=== PATIENT | male | born 1970 | race Caucasian/White ===

== ENCOUNTER 2016-07-24 10:23 | Emergency (ER) | payer MEDICARE, OTHER ==
[~2016-07-24] VITALS: Ht 175.3 cm; Wt 87.0 kg
[2016-07-24 10:25] VITALS: BP 142/80; PULSE 82; RESP 15; TEMP 98.2; O2SAT 99
[2016-07-24] MEDS ORDERED: [UNRECOGNIZED DRUG - CODE] PO (11:06)
[2016-07-24] MEDS ORDERED: ZOCO40TA PO (11:06)
[2016-07-24] MEDS ORDERED: LEXA20TA PO (11:06)
[2016-07-24] MEDS ORDERED: PRIL20TA2 PO (11:06)
[2016-07-24] MEDS ORDERED: CLON1 PO (11:06)
[2016-07-24] MEDS ORDERED: METO50TA PO (11:06)
[2016-07-24] MEDS ORDERED: BUPR100CR PO (11:06)
[2016-07-24] MEDS ORDERED: ADDE20 PO (11:06)
[2016-07-24 11:48] LABS: AUTOMATED NEUTROPHIL # 5.6 TH/MM3 (1.8-7.7); BASOPHIL % 0.5 % (0.0-2.0); EOSINOPHIL # 0.1 TH/MM3 (0-0.4); EOSINOPHIL % 1.6 % (0.0-4.0); HEMATOCRIT 38.8 % (39.0-51.0); HEMO FLAGS DIFF FINAL; LYMPH % 20.7 % (9.0-44.0); LYMPHOCYTE # 1.7 TH/MM3 (1.0-4.8); MEAN CELL VOLUME 87.2 FL (80.0-100.0); MEAN CORPUSCULAR HEMOGLOBIN 30.5 PG (27.0-34.0); MONO % 8.1 % (0.0-8.0); NEUT % 69.1 % (16.0-70.0); PLATELET COUNT 295 TH/MM3 (150-450); RED BLOOD COUNT 4.44 MIL/MM3 (4.50-5.90); RED CELL DISTRIBUTION WIDTH 14.2 % (11.6-17.2); WHITE BLOOD COUNT 8.1 TH/MM3 (4.0-11.0)
[2016-07-24 11:56] LABS: AMPHETAMINE, URINE NEG (NEG); BARBITURATES, URINE NEG (NEG); COCAINE, URINE NEG (NEG)
[2016-07-24 12:08] LABS: ANION GAP 8 MEQ/L (5-15)
[2016-07-24 12:18] LABS: BLOOD UREA NITROGEN 11 MG/DL (7-18); CHLORIDE 102 MEQ/L (98-107); GLOMERULAR FILTRATION RATE 88 ML/MIN (>89); POTASSIUM 3.6 MEQ/L (3.5-5.1); SODIUM (NA) 137 MEQ/L (136-145)
[2016-07-24 12:19] LABS: ACETAMINOPHEN LESS THAN 2.0 MCG/ML (10.0-30.0)
[2016-07-24 13:46] VITALS: BP 132/87; PULSE 88; RESP 16; O2SAT 98
--- NOTE | 2016-07-24 15:04 | PD ---
HPI Chief Complaint: Suicide Ideation/Attempt Time Seen by Provider: 10:59 Travel History International Travel<30 days: No Contact w/Intl Traveler<30days: No Traveled to known affect area: No History of Present Illness HPI 45yo M with HTN and major depressive disorder here with suicidal ideation. States there is a lot of stress in his life and he thought about hurting himself. Thought about drowning himself but denies taking any medications. Denies any fever, chest pain, sob, n/v, abdominal pain, focal weakness or numbness. PFSH Past Medical History ADD: Yes ADHD: Yes Cardiovascular Problems: Yes (HTN) High Cholesterol: Yes Diminished Hearing: Yes GERD: Yes Hypertension: Yes Medical other: Yes Psychiatric: Yes (ptsd) Tetanus Vaccination: < 5 Years Past Surgical History Cholecystectomy: Yes Tonsillectomy: Yes Other Surgery: Yes (ear) Social History Alcohol Use: No Tobacco Use: Yes Substance Use: No Allergies-Medications (Allergen,Severity, Reaction): Coded Allergies: Seroquel (Verified Allergy, Severe, TACHYCARDIA, 07/24/16) Lamictal (Verified Allergy, Intermediate, RASH, 07/24/16) Reported Meds & Prescriptions Reported Meds & Active Scripts Active Reported Zocor (Simvastatin) 40 Mg Tab 40 Mg PO HS Prilosec (Omeprazole Magnesium) 20 Mg Tab 40 Mg PO BID Hematinic Plus Vitamins-Minerals (Multi-Vit w/Iron) 1 Tab 1 Tab PO DAILY Metoprolol Tartrate 50 Mg Tab 50 Mg PO BID Lexapro (Escitalopram Oxalate) 20 Mg Tab 20 Mg PO DAILY Klonopin (Clonazepam) 1 Mg Tab 1 Mg PO BID Wellbutrin SR 12 HR (Bupropion HCl) 100 Mg Tab 100 Mg PO Q12HR Adderall (Amphetamine-Dextroamphetamine) 20 Mg Tab 40 Mg PO BID Avoid late evening doses. Space doses at least 4 to 6 hours if more than once/day dosing. Review of Systems Except as stated in HPI: all other systems reviewed are Neg Physical Exam Narrative GENERAL: 45yo M not in distress. SKIN: Focused skin assessment warm/dry. HEAD: Atraumatic. Normocephalic. EYES: Pupils equal and round. No scleral icterus. No injection or drainage. ENT: No nasal bleeding or discharge. Mucous membranes pink and moist. NECK: Trachea midline. No JVD. CARDIOVASCULAR: Regular rate and rhythm. No murmur appreciated. RESPIRATORY: No accessory muscle use. Clear to auscultation. Breath sounds equal bilaterally. GASTROINTESTINAL: Abdomen soft, non-tender, nondistended. Hepatic and splenic margins not palpable. MUSCULOSKELETAL: No obvious deformities. No clubbing. No cyanosis. No edema. NEUROLOGICAL: Awake and alert. No obvious cranial nerve deficits. Motor grossly within normal limits. Normal speech. Data Data Last Documented VS Vital Signs Date Time Temp Pulse Resp B/P Pulse Ox O2 Delivery O2 Flow Rate FiO2 07/24/16 13:46 88 16 132/87 98 07/24/16 10:25 98.2 Orders Complete Blood Count With Diff (07/24/16 11:05) Basic Metabolic Panel (Bmp) (07/24/16 11:05) Psych Screen (07/24/16 11:05) Drug Screen, Random Urine (07/24/16 11:05) Alcohol (Ethanol) (07/24/16 11:05) Salicylates (Aspirin) (07/24/16 11:05) Tylenol (Acetaminophen) (07/24/16 11:05) Labs Laboratory Tests Test 07/24/16 07/24/16 11:00 11:25 White Blood Count 8.1 TH/MM3 Red Blood Count 4.44 MIL/MM3 Hemoglobin 13.6 GM/DL Hematocrit 38.8 % Mean Corpuscular Volume 87.2 FL Mean Corpuscular Hemoglobin 30.5 PG Mean Corpuscular Hemoglobin 35.0 % Concent Red Cell Distribution Width 14.2 % Platelet Count 295 TH/MM3 Mean Platelet Volume 9.3 FL Neutrophils (%) (Auto) 69.1 % Lymphocytes (%) (Auto) 20.7 % Monocytes (%) (Auto) 8.1 % Eosinophils (%) (Auto) 1.6 % Basophils (%) (Auto) 0.5 % Neutrophils # (Auto) 5.6 TH/MM3 Lymphocytes # (Auto) 1.7 TH/MM3 Monocytes # (Auto) 0.7 TH/MM3 Eosinophils # (Auto) 0.1 TH/MM3 Basophils # (Auto) 0.0 TH/MM3 CBC Comment DIFF FINAL Differential Comment Sodium Level 137 MEQ/L Potassium Level 3.6 MEQ/L Chloride Level 102 MEQ/L Carbon Dioxide Level 27.0 MEQ/L Anion Gap 8 MEQ/L Blood Urea Nitrogen 11 MG/DL Creatinine 0.92 MG/DL Estimat Glomerular Filtration 88 ML/MIN Rate Random Glucose 83 MG/DL Calcium Level 9.0 MG/DL Salicylates Level LESS THAN 1.7 MG/DL Acetaminophen Level LESS THAN 2.0 MCG/ML Ethyl Alcohol Level LESS THAN 3 MG/DL Urine Opiates Screen NEG Urine Barbiturates Screen NEG Urine Amphetamines Screen NEG Urine Benzodiazepines Screen NEG Urine Cocaine Screen NEG Urine Cannabinoids Screen NEG MDM Medical Decision Making Medical Screen Exam Complete: Yes Emergency Medical Condition: Yes Differential Diagnosis Depression vs. suicidal ideation vs. drug use Narrative Course 45yo M with depression here stating he has suicidal thoughts. Labs reviewed, no leukocytosis. BMP unremarkable. Alcohol negative. Salicylate and acetaminophen negative. Urine drug screen negative. Pt is medically clear for psych evaluation. Diagnosis Primary Impression: Depression Qualified Code: F33.9 - Episode of recurrent major depressive disorder, unspecified depression episode severity Jeanette Bonilla DO Jul 24, 2016 15:04
[2016-07-24 19:00] VITALS: BP 105/66; PULSE 67; RESP 18
[2016-07-24 22:00] VITALS: BP 105/54; PULSE 61; RESP 17; O2SAT 99
[2016-07-25 02:27] VITALS: BP 110/69; PULSE 64; RESP 17; O2SAT 98
[2016-07-25 06:00] VITALS: BP 116/58; PULSE 53; RESP 19; O2SAT 98
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
[2016-07-25 10:27] VITALS: BP 119/74; PULSE 73; RESP 18
[2016-07-25] MEDS ORDERED: BUPR100CR PO (10:55)
[2016-07-25] MEDS ORDERED: LEXA20TA PO (10:56)
== END 2016-07-25 11:36 | disposition home or self-care (01) ==
LOC: NEPC 10:23 → NEPJ 07-25 11:36
DX: F33.9 Major depressive disorder, recurrent, unspecified (principal); F90.9 Attention-deficit hyperactivity disorder, unspecified type; F43.10 Post-traumatic stress disorder, unspecified; I10 Essential (primary) hypertension; Z62.819 Personal history of unspecified abuse in childhood; Z72.0 Tobacco use; Z59.0 Homelessness; Z56.0 Unemployment, unspecified
CPT/HCPCS: 80048; 80307; 85025; 99284

== ENCOUNTER 2016-07-27 12:37 | Emergency (ER) | payer MEDICARE, OTHER ==
[2016-07-27] VITALS (9 sets, daily range): BP systolic 100–111; BP diastolic 58–75; PULSE 60–68; RESP 16–18; TEMP 97.8–98; O2SAT 98–99
[~2016-07-27] VITALS: Ht 175.3 cm; Wt 81.0 kg
[~2016-07-27 12:37] MED LIST: ADDE20 PO; BUPR100CR PO; CLON1 PO; LEXA20TA PO; METO50TA PO; PRIL20TA2 PO; ZOCO40TA PO; [UNRECOGNIZED DRUG - CODE] PO
[2016-07-27] MEDS ORDERED: SODIUM CHLORIDE 0.9% FLUSH 10 ML FLUSH IVF PRN (13:00)
[2016-07-27] MEDS ORDERED: SODIUM CHLOR 0.9% 1000 ML INJ 1,000 ML IV ONE (13:00)
--- NOTE | 2016-07-27 13:10 | PD ---
HPI Chief Complaint: Psychiatric Symptoms Time Seen by Provider: 12:58 Travel History International Travel<30 days: No Contact w/Intl Traveler<30days: No Traveled to known affect area: No History of Present Illness HPI 45 year old male with PMH of PTSD, depression HTN, HLD presents to the ED by EMS under [place] [facility] for evaluation of suicidal ideation. The patient states that he took ~30 metoprolol by mouth throughout the night. He also states that he crushed and snorted ~20 Klonopin. He states that he was attempting to end his life because "I have no one and nothing." He endorses previous suicide attempt and previous psychiatric hospitalization. On presentation he complains of hunger but denies other somatic complaints. He states that he was evaluated by the psychiatric screener yesterday and cleared. He states that he "did not like that person" so he denied suicidal ideation to be discharged. [facility] Past Medical History ADD: Yes ADHD: Yes Cardiovascular Problems: Yes (HTN) High Cholesterol: Yes Diminished Hearing: Yes GERD: Yes Hypertension: Yes Psychiatric: Yes (ptsd) Tetanus Vaccination: < 5 Years Influenza Vaccination: No Past Surgical History Cholecystectomy: Yes Tonsillectomy: Yes Other Surgery: Yes (ear) Social History Alcohol Use: No Tobacco Use: Yes Substance Use: No (DENIES) Allergies-Medications (Allergen,Severity, Reaction): Coded Allergies: Lamictal (Verified Allergy, Intermediate, RASH, 07/27/16) Seroquel (Verified Adverse Reaction, Severe, TACHYCARDIA, 07/27/16) Reported Meds & Prescriptions Reported Meds & Active Scripts Active Lexapro (Escitalopram Oxalate) 20 Mg Tab 20 Mg PO DAILY Reported Flonase Nasal [place] (Fluticasone Nasal [place]) 50 Mcg/Act [place] 2 Mcg EACH NARE DAILY Protonix (Pantoprazole Sodium) 40 Mg Tab 40 Mg PO DAILY Metoprolol Tartrate 25 Mg Tab 25 Mg PO BID Wellbutrin Xl 24 HR (Bupropion HCl) 300 Mg Tab 300 Mg PO DAILY Zocor (Simvastatin) 40 Mg Tab 40 Mg PO HS Klonopin (Clonazepam) 1 Mg Tab 1 Mg PO BID Review of Systems Except as stated in HPI: all other systems reviewed are Neg Physical Exam Narrative GENERAL: Well-nourished, well-developed hard of hearing white male in no acute distress. SKIN: Focused skin assessment warm/dry. HEAD: Normocephalic. Bilateral hearing aids EYES: No scleral icterus. No injection or drainage. NECK: Supple, trachea midline. No JVD or lymphadenopathy. CARDIOVASCULAR: Regular rate and rhythm without murmurs, gallops, or rubs. 2+ DP and radial pulses bilaterally. RESPIRATORY: Breath sounds clear and equal bilaterally. No accessory muscle use. GASTROINTESTINAL: Abdomen soft, non-tender, nondistended. Active bowel sounds. MUSCULOSKELETAL: No cyanosis, or edema. Patient moves extremities spontaneously. [facility] BACK: Nontender without obvious deformity. No CVA tenderness. Data Data Last Documented VS Vital Signs Date Time Temp Pulse Resp B/P Pulse Ox O2 Delivery O2 Flow Rate FiO2 07/27/16 15:10 97.8 62 17 105/62 99 Room Air Orders Complete Blood Count With Diff (07/27/16 12:48) Comprehensive Metabolic Panel (07/27/16 12:48) Urinalysis - C+S If Indicated (07/27/16 12:48) Electrocardiogram (07/27/16 12:48) Oximetry (07/27/16 12:48) Iv Access Insert/Monitor (07/27/16 12:48) Ecg Monitoring (07/27/16 12:48) Psych Screen (07/27/16 12:48) Sodium Chloride 0.9% Flush (Ns Flush) (07/27/16 13:00) Drug Screen, Random Urine (07/27/16 12:48) Alcohol (Ethanol) (07/27/16 12:48) Salicylates (Aspirin) (07/27/16 12:48) Tylenol (Acetaminophen) (07/27/16 12:48) Sodium Chlor 0.9% 1000 Ml Inj (Ns 1000 M (07/27/16 13:00) Labs Laboratory Tests Test 07/27/16 07/27/16 13:00 15:00 White Blood Count 8.9 TH/MM3 Red Blood Count 4.24 MIL/MM3 Hemoglobin 13.3 GM/DL Hematocrit 37.4 % Mean Corpuscular Volume 88.1 FL Mean Corpuscular Hemoglobin 31.5 PG Mean Corpuscular Hemoglobin 35.7 % Concent Red Cell Distribution Width 14.3 % Platelet Count 366 TH/MM3 Mean Platelet Volume 8.6 FL Neutrophils (%) (Auto) 63.1 % Lymphocytes (%) (Auto) 24.5 % Monocytes (%) (Auto) 9.1 % Eosinophils (%) (Auto) 2.9 % Basophils (%) (Auto) 0.4 % Neutrophils # (Auto) 5.6 TH/MM3 Lymphocytes # (Auto) 2.2 TH/MM3 Monocytes # (Auto) 0.8 TH/MM3 Eosinophils # (Auto) 0.3 TH/MM3 Basophils # (Auto) 0.0 TH/MM3 CBC Comment DIFF FINAL Differential Comment Sodium Level 138 MEQ/L Potassium Level 3.7 MEQ/L Chloride Level 104 MEQ/L Carbon Dioxide Level 27.3 MEQ/L Anion Gap 7 MEQ/L Blood Urea Nitrogen 9 MG/DL Creatinine 1.07 MG/DL Estimat Glomerular Filtration 74 ML/MIN Rate Random Glucose 99 MG/DL Calcium Level 9.0 MG/DL Total Bilirubin 1.2 MG/DL Aspartate Amino Transf 14 U/L (AST/SGOT) Alanine Aminotransferase 36 U/L (ALT/SGPT) Alkaline Phosphatase 64 U/L Total Protein 7.0 GM/DL Albumin 4.1 GM/DL Salicylates Level LESS THAN 1.7 MG/DL Acetaminophen Level LESS THAN 2.0 MCG/ML Ethyl Alcohol Level LESS THAN 3 MG/DL Urine Color YELLOW Urine Turbidity CLEAR Urine pH 6.0 Urine Specific [place] 1.010 Urine Protein NEG mg/dL Urine Glucose (UA) NEG mg/dL Urine Ketones NEG mg/dL Urine Occult Blood NEG Urine Nitrite NEG Urine Bilirubin NEG Urine Urobilinogen LESS THAN 2.0 MG/DL Urine Leukocyte Esterase NEG Urine RBC 1 /hpf Urine WBC LESS THAN 1 /hpf Urine Mucus FEW /lpf Microscopic Urinalysis Comment CULT NOT INDICATED Urine Opiates Screen NEG Urine Barbiturates Screen NEG Urine Amphetamines Screen NEG Urine Benzodiazepines Screen POS Urine Cocaine Screen NEG Urine Cannabinoids Screen NEG MDM Medical Decision Making Medical Screen Exam Complete: Yes Emergency Medical Condition: Yes Interpretation(s) EKG rate 55, sinus rhythm. NE interval 179, QRS 106, QTC 433. Normal axis. No ST elevations or depressions. Reviewed by Dr. Lea. Differential Diagnosis Adjustment disorder versus anxiety versus bipolar versus depression versus dementia versus electrolyte disorder versus malingering versus mood disorder versus ODD versus psychosis versus PTSD versus schizophrenia versus schizoaffective disorder versus substance-induced mood disorder versus other Narrative Course 45 year old male presents to the ED by EMS under [place] [facility] for evaluation of suicidal ideation. The patient states that he took ~30 metoprolol by mouth throughout the night. He also states that he crushed and snorted ~20 Klonopin. He states that he was attempting to end his life because "I have no one and nothing." He endorses previous suicide attempt and previous psychiatric hospitalization. On presentation he complains of hunger but denies other somatic complaints. He states that he was evaluated by the psychiatric screener yesterday and cleared. Vitals reviewed. Physical exam reveals a nontoxic- appearing, alert, oriented white male in no acute distress. Chest is clear to auscultation bilaterally. Abdomen soft, nontender. Patient moves extremities spontaneously. IV was established. The patient was placed on continuous monitoring. Poison control was contacted and suggest monitoring the patient and administering fluids. No concerning abnormalities of the CBC or CMP. Alcohol less than 3. Tox screen positive for benzos. UA unremarkable. The patient is medically clear for psychiatric evaluation. Please see psych notes for disposition. Diagnosis Primary Impression: Medical clearance for psychiatric admission Shama Bartlett Jul 27, 2016 13:09
[2016-07-27] MEDS ORDERED: WELLTAB39 PO (13:23)
[2016-07-27 13:24] LABS: AUTOMATED NEUTROPHIL # 5.6 TH/MM3 (1.8-7.7); BASOPHIL % 0.4 % (0.0-2.0); EOSINOPHIL # 0.3 TH/MM3 (0-0.4); EOSINOPHIL % 2.9 % (0.0-4.0); HEMATOCRIT 37.4 % (39.0-51.0); HEMO FLAGS DIFF FINAL; LYMPH % 24.5 % (9.0-44.0); LYMPHOCYTE # 2.2 TH/MM3 (1.0-4.8); MEAN CELL VOLUME 88.1 FL (80.0-100.0); MEAN CORPUSCULAR HEMOGLOBIN 31.5 PG (27.0-34.0); MEAN CORPUSCULAR HGB CONC 35.7 % (32.0-36.0); MONO % 9.1 % (0.0-8.0); NEUT % 63.1 % (16.0-70.0); PLATELET COUNT 366 TH/MM3 (150-450); RED BLOOD COUNT 4.24 MIL/MM3 (4.50-5.90); RED CELL DISTRIBUTION WIDTH 14.3 % (11.6-17.2); WHITE BLOOD COUNT 8.9 TH/MM3 (4.0-11.0)
[2016-07-27] MEDS ORDERED: PROT40TA PO (13:26)
[2016-07-27] MEDS ORDERED: METO25TA3 PO (13:26)
[2016-07-27] MEDS ORDERED: FLUT1SPR5 EACH NARE (13:28)
[2016-07-27 13:49] LABS: ACETAMINOPHEN LESS THAN 2.0 MCG/ML (10.0-30.0); ALT (GPT) 36 U/L (12-78); ANION GAP 7 MEQ/L (5-15); AST (GOT) 14 U/L (15-37); BICARBONATE 27.3 MEQ/L (21.0-32.0); BLOOD UREA NITROGEN 9 MG/DL (7-18); CHLORIDE 104 MEQ/L (98-107); GLOMERULAR FILTRATION RATE 74 ML/MIN (>89); POTASSIUM 3.7 MEQ/L (3.5-5.1); SODIUM (NA) 138 MEQ/L (136-145)
[2016-07-27 13:51] LABS: ALKALINE PHOSPHATASE 64 U/L (45-117); TOTAL BILIRUBIN ADULT 1.2 MG/DL (0.2-1.0)
[2016-07-27 15:15] LABS: BLOOD, URINE NEG (NEG); COMMENT (UR) CULT NOT INDICATED; CULTURE IF INDICATED CULT NOT INDICATED; GLUCOSE,URINE NEG (NEG); KETONE, URINE NEG (NEG); MUCUS URINE FEW /lpf (OCC); NITRITE,URINE NEG (NEG); URINE COLOR YELLOW (YELLW/STRAW)
[2016-07-27 15:18] LABS: AMPHETAMINE, URINE NEG (NEG); BARBITURATES, URINE NEG (NEG); COCAINE, URINE NEG (NEG)
[2016-07-28 01:53] VITALS: BP 110/73; PULSE 51; RESP 18
[2016-07-28 06:03] VITALS: BP 103/58; PULSE 58; RESP 18
[2016-07-28 11:28] VITALS: BP 111/68; PULSE 71; RESP 18; TEMP 98.6; O2SAT 95
[2016-07-28 11:29] VITALS: BP 111/68; PULSE 71; RESP 18; O2SAT 95
--- NOTE | 2016-07-28 14:17 | EKG ---
Date Performed: 07/27/2016 Time Performed: 13:05:52 PTAGE: 45 years EKG: SINUS BRADYCARDIA POSSIBLE LATERAL MYOCARDIAL INFARCTION ABNORMAL ECG NO PREVIOUS TRACING DOCTOR: Lance Baker Interpretating Date/Time 07/28/2016 14:17:03
--- NOTE | 2016-07-28 15:03 | PD ---
History of Present Illness Chief Complaint: Psychiatric Symptoms Time Seen by Provider: 14:45 Travel History International Travel<30 Days: No Contact w/Intl Traveler<30days: No Known affected area: No Legal Status Legal Status: Lawson Act Lawson Act Signed By: Joanne Rhodes History of Present Illness: 45-year-old male who presented under a Lawson act with reported history of suicidal threats. This physician extensively reviewed the patient's recent records as he will not speak to the staff, the [facility] or this physician. It was also noted he would not speak with law enforcement. Patient is hearing impaired but obviously does have the ability to speak. He was here several days ago with a history of snorting medication. He was reportedly suicidal then as well. He was also difficult to work with them. At this time, this physician does not feel it appropriate to admit the patient to the hospital or to continue his Lawson act. In fact, it is counter therapeutic to get into this patient's manipulations. As the patient has chosen not to speak with most of the staff members here, commenting that he does not like them, he is felt to most likely have a personality disorder. This is reinforced as well by his drug abuse. This physician understands that discharging him may be risky due to the patient's ability to act out. However, this physician finds no alternative that is therapeutic for the patient at this time. PFSH Past Medical History ADD: Yes ADHD: Yes Cardiovascular Problems: Yes (HTN) High Cholesterol: Yes Diminished Hearing: Yes GERD: Yes Hypertension: Yes Psychiatric: Yes (ptsd) Tetanus Vaccination: < 5 Years Influenza Vaccination: No Past Surgical History Cholecystectomy: Yes Tonsillectomy: Yes Other Surgery: Yes (ear) Psychiatric History Psychiatric History Hx Psychiatric Treatment: reports hx of PTSD and ADHD as well as depression. Multiple admissions in multiple staes reported. Does not report previous hx of suicide attempts. History of Inpatient Treatment: Yes Social History Hx Alcohol Use: No Hx Tobacco Use: Yes Hx Substance Use: No (DENIES) Hx of Substance Use Treatment: No Allergies-Medications (Allergen,Severity, Reaction): Coded Allergies: Lamictal (Verified Allergy, Intermediate, RASH, 4/23/17) Seroquel (Verified Adverse Reaction, Severe, TACHYCARDIA, 07/27/16) Reported Meds & Prescriptions Reported Meds & Active Scripts Active Lexapro (Escitalopram Oxalate) 20 Mg Tab 20 Mg PO DAILY Reported Flonase Nasal [place] (Fluticasone Nasal [place]) 50 Mcg/Act [place] 2 Mcg EACH NARE DAILY Protonix (Pantoprazole Sodium) 40 Mg Tab 40 Mg PO DAILY Metoprolol Tartrate 25 Mg Tab 25 Mg PO BID Wellbutrin Xl 24 HR (Bupropion HCl) 300 Mg Tab 300 Mg PO DAILY Zocor (Simvastatin) 40 Mg Tab 40 Mg PO HS Klonopin (Clonazepam) 1 Mg Tab 1 Mg PO BID Review of Systems ROS Limitations: Clinical Condition Except as stated in HPI: all other systems reviewed are Neg Exam Exam Limitations: Clinical Condition Alert: Yes [place]: Person, Place, Date, Situation Mood: Calm Affect: Appropriate Speech: Clear Eye Contact: Indirect Memory Intact: Immediate, Recent, Remote Insight/Judgement Adequate MDM Medical Decision Making Medical Record Reviewed: Yes Assessment/Plan Lawson act is being lifted and the patient is being discharged from the emergency department. Because the patient is being manipulative and will only speak to certain people and not to others, hiding his history from staff, this physician feels it is inappropriate to get into his manipulations. This is reinforced by the patient's ingestion of medicines by snorting. Although the patient remains at risk for acting out and harming himself, it remains counter therapeutic to admit him. Orders Diet Regular Basic (07/28/16 Breakfast) Diet Regular Basic (07/28/16 Lunch) Results Vital Signs Date Time Temp Pulse Resp B/P Pulse Ox O2 Delivery O2 Flow Rate FiO2 07/28/16 11:28 98.6 71 18 111/68 95 Room Air 07/28/16 06:03 58 18 103/58 07/28/16 01:53 51 18 110/73 07/27/16 22:00 64 18 105/68 Room Air 07/27/16 18:05 98.0 64 18 100/62 99 07/27/16 17:02 61 16 110/61 98 Room Air 07/27/16 16:11 98.0 61 17 108/61 99 Room Air 07/27/16 15:10 97.8 62 17 105/62 99 Room Air Laboratory Tests Test 07/27/16 15:00 Urine Color YELLOW Urine Turbidity CLEAR Urine pH 6.0 Urine Specific [place] 1.010 Urine Protein NEG Urine Glucose (UA) NEG Urine Ketones NEG Urine Occult Blood NEG Urine Nitrite NEG Urine Bilirubin NEG Urine Urobilinogen LESS THAN 2.0 Urine Leukocyte Esterase NEG Urine RBC 1 Urine WBC LESS THAN 1 Urine Mucus FEW Microscopic Urinalysis Comment CULT NOT INDICATED Urine Opiates Screen NEG Urine Barbiturates Screen NEG Urine Amphetamines Screen NEG Urine Benzodiazepines Screen POS Urine Cocaine Screen NEG Urine Cannabinoids Screen NEG Diagnosis Primary Impression: Adjustment disorder with mixed disturbance of emotions and conduct John Borrero MD Jul 28, 2016 15:03
== END 2016-07-28 17:25 | disposition home or self-care (01) ==
LOC: NEPC 12:37 → NEPJ 07-28 17:25
DX: T44.7X2A Poisoning by beta-adrenoreceptor antagonists, intentional self-harm, initial encounter (principal); F43.25 Adjustment disorder with mixed disturbance of emotions and conduct; I10 Essential (primary) hypertension; F43.10 Post-traumatic stress disorder, unspecified; F90.9 Attention-deficit hyperactivity disorder, unspecified type; H91.90 Unspecified hearing loss, unspecified ear; X83.8XXA Intentional self-harm by other specified means, initial encounter; Z72.0 Tobacco use
CPT/HCPCS: 80053; 80307; 81001; 85025; 93005; 96360; 99283; J7030

== ENCOUNTER 2016-07-29 01:14 | Emergency (ER) | payer MEDICARE, OTHER ==
[~2016-07-29] VITALS: Ht 177.8 cm; Wt 85.0 kg
[2016-07-29] VITALS (7 sets, daily range): BP systolic 110–131; BP diastolic 64–75; PULSE 55–76; RESP 17–20; TEMP 98.2; O2SAT 96–99
[~2016-07-29 01:14] MED LIST changes: -ADDE20 PO; -BUPR100CR PO; +FLUT1SPR5 EACH NARE; +METO25TA3 PO; -METO50TA PO; -PRIL20TA2 PO; +PROT40TA PO; +WELLTAB39 PO; -[UNRECOGNIZED DRUG - CODE] PO
--- NOTE | 2016-07-29 06:14 | PD ---
HPI Chief Complaint: Psychiatric Symptoms Time Seen by Provider: 06:11 Travel History International Travel<30 days: No Contact w/Intl Traveler<30days: No Traveled to known affect area: No History of Present Illness HPI 45-year-old white male presents to emergency department as a transfer ER to ER from [facility]. The patient had presented due to worsening depression with suicidal thoughts. He states that if he is discharged he would walk out into traffic. He was recently seen here at the emergency department at [place] and discharge. Patient states that he recently moved to [facility] from [place]. The patient denies any toxic ingestions. No recent illness. He was medically cleared from [facility] to be seen by the psychiatrist. [facility] Past Medical History ADD: Yes ADHD: Yes Cardiovascular Problems: Yes (HTN) High Cholesterol: Yes Diminished Hearing: Yes GERD: Yes Hypertension: Yes Psychiatric: Yes (ptsd) Past Surgical History Cholecystectomy: Yes Tonsillectomy: Yes Other Surgery: Yes (ear) Social History Alcohol Use: No Tobacco Use: Yes Substance Use: No (DENIES) Allergies-Medications (Allergen,Severity, Reaction): Coded Allergies: Lamictal (Verified Allergy, Intermediate, RASH, 07/27/16) Seroquel (Verified Adverse Reaction, Severe, TACHYCARDIA, 07/27/16) Reported Meds & Prescriptions Reported Meds & Active Scripts Active Lexapro (Escitalopram Oxalate) 20 Mg Tab 20 Mg PO DAILY Reported Flonase Nasal [place] (Fluticasone Nasal [place]) 50 Mcg/Act [place] 2 Mcg EACH NARE DAILY Protonix (Pantoprazole Sodium) 40 Mg Tab 40 Mg PO DAILY Metoprolol Tartrate 25 Mg Tab 25 Mg PO BID Wellbutrin Xl 24 HR (Bupropion HCl) 300 Mg Tab 300 Mg PO DAILY Zocor (Simvastatin) 40 Mg Tab 40 Mg PO HS Klonopin (Clonazepam) 1 Mg Tab 1 Mg PO BID Review of Systems Except as stated in HPI: all other systems reviewed are Neg Psychiatric: Positive: Depression, Suicidal Ideations, No: Anxiety, Disorder of Thought, Mood Disorder, Substance Abuse, Homicidal Ideation Physical Exam Narrative GENERAL: Well-nourished, well-developed patient. SKIN: Warm and dry. HEAD: Normocephalic and atraumatic. EYES: No scleral icterus. No injection or drainage. ENT: No nasal drainage noted. Mucous membranes pink. Airway patent. NECK: Supple, trachea midline. Moves head freely without obvious discomfort. CARDIOVASCULAR: Regular rate and rhythm without murmurs, gallops, or rubs. RESPIRATORY: Breath sounds equal bilaterally. No accessory muscle use. GASTROINTESTINAL: Abdomen soft, non-tender, nondistended. EXTREMITIES: No cyanosis or edema. BACK: Nontender without obvious deformity. No CVA tenderness. NEURO: Patient is alert and oriented. no sensorimotor deficits. Nonfocal. Normal speech. PSYCH: No delusions. No auditory or visual hallucinations. Data Data Last Documented VS Vital Signs Date Time Temp Pulse Resp B/P Pulse Ox O2 Delivery O2 Flow Rate FiO2 07/29/16 02:00 60 17 126/71 97 Room Air Orders Psych Screen (07/29/16 05:30) MDM Medical Decision Making Medical Screen Exam Complete: Yes Emergency Medical Condition: Yes Medical Record Reviewed: Yes Differential Diagnosis MDM: High Differential diagnoses: Schizophrenia, schizoaffective disorder, bipolar, anxiety, depression, adjustment reaction, mood disorder NOS, ODD, depressive disorder NOS, dementia, dementia with agitation, psychosis NOS, substance induced mood disorder, intermittent explosive disorder, Asperger syndrome, infection,electrolyte abnormality, malingering. Narrative Course Mental health screening discussed with the patient. Psychiatric screen ordered. The patient is medically cleared. This is medical clearance for psychiatric admission Diagnosis Primary Impression: Medical clearance for psychiatric admission Condition: Stable Vicente Black Jul 29, 2016 06:14
[2016-07-30 02:00] VITALS: BP 121/62; PULSE 64; RESP 17; O2SAT 97
[2016-07-30 06:25] VITALS: BP 130/70; PULSE 55; RESP 18; O2SAT 96
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
[2016-07-30 11:58] VITALS: BP 130/70; PULSE 55; RESP 18; O2SAT 96
== END 2016-07-30 12:00 | disposition home or self-care (01) ==
LOC: NEPJ 01:14
DX: F43.25 Adjustment disorder with mixed disturbance of emotions and conduct (principal)
CPT/HCPCS: 99284

== ENCOUNTER 2016-07-31 01:06 | Emergency (ER) | payer MEDICARE, OTHER ==
--- NOTE | 2016-07-31 01:43 | PD ---
HPI . lawson act Chief Complaint: ba Time Seen by Provider: 01:28 Travel History International Travel<30 days: No Contact w/Intl Traveler<30days: No Traveled to known affect area: No History of Present Illness HPI This is a 45-year-old homeless male with history of PTSD, major depressive disorder, anxiety, ADD, hypertension, hyperlipidemia. He presents under a lawson act initiated at an outside emergency room. The patient reports feelings of depression, suicidal thoughts for "a while." Most recently, he reports that this past week and he attempted overdose on his medication. He was actually seen here at that time. He was discharged this morning after seeing psychiatry. He then went to an outside emergency room where he was placed on another Lawson acted, medically cleared by emergency room physician Dr. Palm, and transferred here for psychiatric evaluation. He denies any new overdose/ ingestion today. He denies any acute medical problems at this time. This is his fourth visit to this emergency room in the past week for similar symptoms. He reports that he recently moved here about 1.5 weeks ago from [place]. [facility] Past Medical History ADD: Yes ADHD: Yes Cardiovascular Problems: Yes (HTN) High Cholesterol: Yes Diminished Hearing: Yes GERD: Yes Hypertension: Yes Psychiatric: Yes (ptsd) Past Surgical History Cholecystectomy: Yes Tonsillectomy: Yes Other Surgery: Yes (ear) Social History Alcohol Use: No Tobacco Use: Yes Substance Use: Yes Allergies-Medications (Allergen,Severity, Reaction): Coded Allergies: Lamictal (Verified Allergy, Intermediate, RASH, 07/27/16) Seroquel (Verified Adverse Reaction, Severe, TACHYCARDIA, 07/27/16) Reported Meds & Prescriptions Reported Meds & Active Scripts Active Lexapro (Escitalopram Oxalate) 20 Mg Tab 20 Mg PO DAILY Reported Flonase Nasal [place] (Fluticasone Nasal [place]) 50 Mcg/Act [place] 2 Mcg EACH NARE DAILY Protonix (Pantoprazole Sodium) 40 Mg Tab 40 Mg PO DAILY Metoprolol Tartrate 25 Mg Tab 25 Mg PO BID Wellbutrin Xl 24 HR (Bupropion HCl) 300 Mg Tab 300 Mg PO DAILY Zocor (Simvastatin) 40 Mg Tab 40 Mg PO HS Klonopin (Clonazepam) 1 Mg Tab 1 Mg PO BID Review of Systems Except as stated in HPI: all other systems reviewed are Neg Physical Exam Narrative GENERAL: Well-developed well-nourished male in no acute distress SKIN: Warm and dry. HEAD: Atraumatic. Normocephalic. EYES: Pupils equal and round. No scleral icterus. No injection or drainage. ENT: No nasal bleeding or discharge. Mucous membranes pink and moist. NECK: Trachea midline. No JVD. CARDIOVASCULAR: Regular rate and rhythm. No murmur appreciated. RESPIRATORY: No accessory muscle use. Clear to auscultation. Breath sounds equal bilaterally. GASTROINTESTINAL: Abdomen soft, non-tender, nondistended. Hepatic and splenic margins not palpable. MUSCULOSKELETAL: No obvious deformities. NEUROLOGICAL: Awake and alert. No obvious cranial nerve deficits. Motor grossly within normal limits. Normal speech. Data Data Last Documented VS Vital Signs Date Time Temp Pulse Resp B/P Pulse Ox O2 Delivery O2 Flow Rate FiO2 07/31/16 02:05 77 18 121/87 97 Room Air Orders Psych Screen (07/31/16 02:11) MDM Medical Decision Making Medical Screen Exam Complete: Yes Emergency Medical Condition: Yes Medical Record Reviewed: Yes Differential Diagnosis Homelessness, malingering, major depressive disorder, acute psychosis, substance induced mood disorder, adjustment reaction Narrative Course 45-year-old male was transferred here from an outside emergency room for psychiatric evaluation. He has been previously medical cleared by Dr. Palm at [facility]. This is also his fourth visit for similar psychiatric symptoms this past week. I reviewed his lab work from previous visits here. I reviewed his lab work from [facility] which was unremarkable. Mental health screening discussed with the patient. Psychiatric screen ordered. The patient is medically cleared for psychiatric disposition. Diagnosis Primary Impression: Medical clearance for psychiatric admission Austin Yancey Jul 31, 2016 01:43
[2016-07-31 02:05] VITALS: BP 121/87; PULSE 77; RESP 18; O2SAT 97
[2016-07-31 06:00] VITALS: BP 132/66; PULSE 74; RESP 18; O2SAT 95
[2016-07-31 08:07] VITALS: BP 132/66; PULSE 74; RESP 18; TEMP 97.4; O2SAT 95
[2016-07-31 09:55] VITALS: PULSE 71; RESP 16; TEMP 98.6; O2SAT 98
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
== END 2016-07-31 11:06 | disposition home or self-care (01) ==
LOC: NEPJ 01:06
DX: F43.25 Adjustment disorder with mixed disturbance of emotions and conduct (principal); Z76.5 Malingerer [conscious simulation]; Z59.0 Homelessness
CPT/HCPCS: 99284

== ENCOUNTER 2016-08-04 13:46 | Emergency (ER) | payer MEDICARE, OTHER ==
[~2016-08-04] VITALS: Ht 175.3 cm; Wt 81.8 kg
[2016-08-04 13:57] VITALS: BP 148/85; PULSE 88; RESP 20; TEMP 98.3; O2SAT 98
--- NOTE | 2016-08-04 14:47 | PD ---
Physical Exam Narrative 46 y/o male presents with widespread painful sunburn for 5 days. Currently homeless, staying at [facility]. vss Seen at triage desk. Awaiting bed placement. Data Data Last Documented VS Vital Signs Date Time Temp Pulse Resp B/P Pulse Ox O2 Delivery O2 Flow Rate FiO2 08/04/16 13:57 98.3 88 20 148/85 98 Room Air [facility] Medical Record Reviewed: Yes Supervised Visit with VICENTE: No Austin Yancey August 04, 2016 14:47
[2016-08-04] MEDS ORDERED: IBUPROFEN 800 MG TAB PO ONE (17:00)
[2016-08-04] MEDS ORDERED: IBUP800T23 PO (17:01)
[2016-08-04] MEDS ORDERED: METO25TA3 PO (17:01)
--- NOTE | 2016-08-04 17:02 | PD ---
HPI Chief Complaint: Burn Time Seen by Provider: 16:52 Travel History International Travel<30 days: No Contact w/Intl Traveler<30days: No Traveled to known affect area: No History of Present Illness HPI Patient is a 46-year-old male presenting to the emergency department for evaluation of a sunburn to his legs. Patient states she's been out in the sun since of last week, he reports that the sunburn was worse on Thursday and Thursday. He denies any fevers but reports feeling chilled, he reports pain in his lower legs that is a 7 out of 10 and describes as aching and sore. Patient is currently staying at the [facility], he denies laying in the sun purposely. The sunburn is from the mid thigh to his ankle. Patient also reports being out of his blood pressure medicine for the last week. He has no other complaints at this time. [facility] Past Medical History ADD: Yes ADHD: Yes High Cholesterol: Yes Diminished Hearing: Yes GERD: Yes Hypertension: Yes Psychiatric: Yes (PTSD) Past Surgical History Cholecystectomy: Yes Tonsillectomy: Yes Other Surgery: Yes (ear) Social History Alcohol Use: No Tobacco Use: Yes Substance Use: Yes Allergies-Medications (Allergen,Severity, Reaction): Coded Allergies: Lamictal (Verified Allergy, Intermediate, RASH, 08/04/16) Seroquel (Verified Adverse Reaction, Severe, TACHYCARDIA, 08/04/16) Reported Meds & Prescriptions Reported Meds & Active Scripts Active Lexapro (Escitalopram Oxalate) 20 Mg Tab 20 Mg PO DAILY Reported Flonase Nasal Oak (Fluticasone Nasal Oak) 50 Mcg/Act Oak 2 Mcg EACH NARE DAILY Protonix (Pantoprazole Sodium) 40 Mg Tab 40 Mg PO DAILY Metoprolol Tartrate 25 Mg Tab 25 Mg PO BID Wellbutrin Xl 24 HR (Bupropion HCl) 300 Mg Tab 300 Mg PO DAILY Zocor (Simvastatin) 40 Mg Tab 40 Mg PO HS Klonopin (Clonazepam) 1 Mg Tab 1 Mg PO BID Review of Systems Except as stated in HPI: all other systems reviewed are Neg General / Constitutional: Positive: Chills Skin: Positive Change in Pigmentation Physical Exam Narrative GENERAL: Well-developed, well-nourished, alert male. SKIN: Warm and dry. Erythema noted to bilateral legs from just proximal to the knee to the ankle, mild edema noted. Less than 0.5 cm blister noted to left ankle. HEAD: Normocephalic. EYES: No scleral icterus. No injection or drainage. NECK: Supple, trachea midline. No JVD or lymphadenopathy. CARDIOVASCULAR: Regular rate and rhythm without murmurs, gallops, or rubs. RESPIRATORY: Breath sounds equal bilaterally. No accessory muscle use. GASTROINTESTINAL: Abdomen soft, non-tender, nondistended. MUSCULOSKELETAL: No cyanosis, positive pedal pulses bilaterally, brisk less than 3 second capillary refill. Patient is neurovascularly intact. BACK: Nontender without obvious deformity. No CVA tenderness. Data Data Last Documented VS Vital Signs Date Time Temp Pulse Resp B/P Pulse Ox O2 Delivery O2 Flow Rate FiO2 08/04/16 13:57 98.3 88 20 148/85 98 Room Air Orders Ibuprofen (Motrin) (08/04/16 17:00) MDM Medical Decision Making Medical Screen Exam Complete: Yes Emergency Medical Condition: Yes Interpretation(s) Vital Signs Date Time Temp Pulse Resp B/P Pulse Ox O2 Delivery O2 Flow Rate FiO2 08/04/16 13:57 98.3 88 20 148/85 98 Room Air Differential Diagnosis First-degree burn versus second-degree burn versus cellulitis versus other Narrative Course Patient is a 46-year-old male presenting to the emergency department for evaluation of the sunburn. His vital signs are stable, patient has been using sunscreen today. Patient was encouraged to continue to use sunscreen when he is out on the side. He was encouraged to obtain [id number] post sunburn cream/lotion. Patient was encouraged to follow with primary care or at the [facility]. He will be provided with a refill of his metoprolol at this time. Patient was encouraged to take ibuprofen as needed and as directed for pain. Patient verbalized understanding of these instructions. Patient is stable for discharge. Diagnosis Primary Impression: Sunburn of first degree Additional Impression: Medication refill Referrals: [facility] Patient Instructions: General Instructions, Sunburn (ED) Additional Instructions: Obtain [id number] topical sunburn cream Take medications as directed Follow-up with the [facility] Return to emergency department for any new or worsening symptoms Med/Other Pt SpecificInfo: Prescription(s) given Scripts Ibuprofen 800 Mg [id number] Mg PO Q8H PRN (Pain/Inflammation) 10 Days Ref 0 Prov:Joanie Zavala 08/04/16 Metoprolol Tartrate 25 Mg Tab25 Mg PO BID #60 TAB Ref 0 Prov:Joanie Zavala 08/04/16 Disposition: 01 DISCHARGE HOME Condition: Stable Joanie Zavala August 04, 2016 17:01
[2016-08-04 18:40] VITALS: RESP 16
== END 2016-08-04 18:52 | disposition home or self-care (01) ==
LOC: NEPD 13:46
DX: L55.0 Sunburn of first degree (principal); Z76.0 Encounter for issue of repeat prescription; Z72.0 Tobacco use; E78.00 Pure hypercholesterolemia, unspecified; H91.90 Unspecified hearing loss, unspecified ear; I10 Essential (primary) hypertension; F43.10 Post-traumatic stress disorder, unspecified
CPT/HCPCS: 99283